=== PATIENT | female | born 1995 | race Hispanic/Latino ===

== ENCOUNTER 2021-11-09 06:40 | Emergency (ER) | payer SELFPAY ==
[2021-11-09] MEDS ORDERED: Ibuprofen 800 MG TAB ONE (07:39)
== END 2021-11-09 07:53 | disposition home or self-care (01) ==
LOC: NAV ERS 06:40
DX: N93.9 Abnormal uterine and vaginal bleeding, unspecified (principal); N83.209 Unspecified ovarian cyst, unspecified side
CPT/HCPCS: 99284